=== PATIENT | female | born 1975 | race African-American/Black ===

== ENCOUNTER 2019-10-08 19:50 | Emergency (ER) | payer MEDICARE, MEDICAID ==
[~2019-10-08] VITALS: Ht 175.3 cm; Wt 95.0 kg
[2019-10-08 20:22] VITALS: BP 122/84
== END 2019-10-08 23:29 | disposition left against medical advice (07) ==
LOC: ER 19:50
DX: Z53.21 Procedure and treatment not carried out due to patient leaving prior to being seen by health care provider (principal)